=== PATIENT | male | born 1965 | race Caucasian/White ===

== ENCOUNTER 2018-12-11 08:50 | Outpatient (REF) | payer OTHER, SELFPAY ==
[2018-12-11 12:13] LABS: ALT 29 U/L (16-63); AST 14 U/L (15-37); Anion Gap 11.8 mmol/L (3-11); BUN 15 mg/dL (7-18); CO2 25.2 mmol/L (21.0-32.0); CREATININE 1.04 mg/dL (0.70-1.30); Calcium 8.7 mg/dL (8.5-10.1); Calculated LDL 112 mg/dL; Chloride 103 mmol/L (98-107); Cholesterol 178 mg/dL (50-200); Glucose 115 mg/dL (70-100); HDL Cholesterol 50 mg/dL (40-60); Potassium 4.3 mmol/L (3.5-5.1); Sodium 140 mmol/L (136-145); Triglyceride 83 mg/dL (30-150)
== END 2018-12-11 09:10 ==
LOC: NCHCN 08:50
PROVIDERS: PCP Nurse Practitioner Family; Visit Provider Nurse Practitioner Family
DX: Z00.00 Encounter for general adult medical examination without abnormal findings (principal); Z13.220 Encounter for screening for lipoid disorders; Z13.228 Encounter for screening for other metabolic disorders
CPT/HCPCS: 80048; 80061; 84450; 84460

== ENCOUNTER 2019-02-18 09:15 | Outpatient (CLI) | payer OTHER, SELFPAY ==
[2019-02-18 09:49] LABS: HCT 43.9 % (40.0-50.0); HGB 14.7 g/dL (13.5-17.5); Mean Corp. HGB Concentration 33.5 g/dL (32.0-36.0); Mean Corpuscular Hemoglobin 28.8 pg (27.0-33.0); Mean Corpuscular Volume 85.9 fL (80-95); Platelet Count 215 x1000/uL (130-400); RBC 5.11 m/cumm (4.50-6.00); RBC Distribution Width 13.7 % (11.8-14.1); White Blood Cell Count 5.56 k/cumm (4.4-10.8)
[2019-02-18 10:48] LABS: TSH 3.92 uIU/mL (0.36-3.74)
== END 2019-02-18 09:35 ==
PROVIDERS: PCP Nurse Practitioner Family; Visit Provider Nurse Practitioner
DX: R00.0 Tachycardia, unspecified (principal)
CPT/HCPCS: 36415; 85027; 84443

== ENCOUNTER 2019-04-19 07:36 | Day surgery (SDC) | payer OTHER, SELFPAY ==
[2019-04-19 07:53] VITALS: BP 121/80; PULSE 97; RESP 16; TEMP 36.4; O2SAT 97
[2019-04-19] MEDS: Lactated Ringers 1,000 ML 80 ML IV (08:11)
--- NOTE | 2019-04-19 08:34 | W.PM.HP.N ---
Date of service: 04/19/19 Time of Service: 08:35 Assessment and Plan Assessment and plan (1) Colon cancer screening: Status: Acute Assessment and plan: I advised colonoscopy. The procedure was described including the risks of perforation with need for surgery or bleeding. Patient agrees to proceed. History of Present Illness Narrative: 54 y/o male with history of GERD and diverticulitis (s/p sigmoidcolectomy 06/2007 secondary to perforated sigmoid diverticulosis) presents for colon screening. Last scope was a flexible sigmoidoscopy in 11/2007 via the stoma to cecum, prior to colostomy reversal 10/2007. He denies a family history of colon cancer. He denies any changes in bowel habits including bloody or black tarry stools, abdominal pain, diarrhea or constipation. He denies constitutional symptoms. Denies use of marijuana or any other recreational or illegal drugs. He denies chest pain, palpitations, dyspnea or dyspnea with exertion. He walks 2 miles/day. He denies prior history or family history of adverse reactions or complications with anesthesia. Review of Systems All systems reviewed & are unremarkable except as noted in HPI and below PFSH Medical History GERD (gastroesophageal reflux disease) (Chronic) Sleep apnea (Acute) Surgical History S/P laparoscopic-assisted sigmoidectomy (Acute) Social History Smoking/Tobacco Use Status: Former Tobacco Use Quit Date: 02/28/84 Alcohol Intake: current Alcohol Intake frequency: a few times a month Alcohol type: hard liquor Drug use: Never Substance use type: does not use Do you feel safe at home: Yes Do you feel safe in your relationship?: Yes Meds Home Medications and Allergies Home Medications Medication Instructions Recorded Confirmed Type esomeprazole magnesium 20 mg 20 mg PO DAILY 01/29/19 04/19/19 History capsule,delayed release bisacodyl 5 mg tablet,delayed 5 mg PO ONCE #4 tab 03/15/19 04/19/19 Rx release polyethylene glycol 3350 17 238 g PO ONCE #238 gm 03/15/19 04/19/19 Rx gram/dose oral powder Allergies Allergy/AdvReac Type Severity Reaction Status Date / Time No Known Allergies Allergy Verified 04/19/19 08:00 Exam Const General: healthy appearing and not in acute distress Nutritional Appearance: well nourished Orientation: oriented x3 HENMT Head: normal to inspection Eyes Sclera: sclerae normal Pupils: PERRL Neck Neck: no lymphadenopathy Chest Breast inspection: normal inspection of the axillae Resp Effort & Inspection: normal respiratory effort Auscultation: clear to auscultation bilaterally and no wheezes Cardio Rate: regular rate Rhythm: regular rhythm GI Inspection: non-distended Palpation: soft, no hepatosplenomegaly, no hernias and nontender Skin General skin exam: no rashes or lesions noted Neuro General: alert Cognition: normal cognition Extrem General: normal to inspection Psych Affect: normal affect Attitude: cooperative Results Last Vital Signs Temp 97.5 F L 04/19/19 07:53 Pulse 97 H 04/19/19 07:53 Resp 16 04/19/19 07:53 BP 121/80 04/19/19 07:53 Pulse Ox 97 04/19/19 07:53
--- NOTE | 2019-04-19 09:22 | W.PM.DSUDISC ---
Discharge Plan Disposition Patient Disposition: HOME Condition: Good Discharge Details Reason For Visit: Colonoscopy Attending Provider: Mariana Larsen Primary Care Provider: Gisele Dee Home Meds and New Rx's Prescriptions: Continued esomeprazole magnesium [Nexium] 20 mg capsule,delayed release(DR/EC) 20 mg PO DAILY RF: 0 Discontinued polyethylene glycol 3350 17 gram/dose powder 238 g PO ONCE Qty: 238 RF: 0 bisacodyl [Dulcolax (bisacodyl)] 5 mg tablet,delayed release (DR/EC) 5 mg PO ONCE Qty: 4 RF: 0 Discharge Instructions Additional Instructions: Findings: One small polyp was removed. My office will contact you with biopsy results. Diverticulosis was present. Follow up: If the biopsy results show an adenomatous polyp, you will need a colonoscopy in 5 years. Please call if you develop: fevers >101.5 Nausea or Vomiting Abdominal pain that is not transient DAY SURGERY UNIT POST COLONOSCOPY INSTRUCTIONS 1. Because there will be medication in your system for the next 24 hours, you may feel a little sleepy. Your coordination will be affected. Therefore: a. Do not drive or operate dangerous equipment for 24 hours. b. Do not drink alcohol beverages for 24 hours (not even beer). c. Plan to go home and rest for the day. 2. Generally there are no restrictions on your activity after a day or so has gone by, but you may feel a bit fatigued for a few days. 3 After you arrive home you may have a light meal and return to a normal diet as you can tolerate it without feeling sick to your stomach. 4. After surgery, you may feel pain or discomfort. This should be only transient, but if it persists please contact your doctor. 5. If there are any questions regarding the findings of your procedure, please feel free to contact your doctor. 6. If you are unable to contact your doctor with a problem, contact the hospital at [phone]. 7. Continue all your regular medications unless directed otherwise. I understand the above instructions and have no questions. Signature of Patient or Responsible Adult Escort Date/Time Name of Responsible Adult Escort Signature of Nurse Date/Time Activity:: Activity as Tolerated Diet:: As Tolerated Discharge Orders Discharge Orders: Discharge Order (Routine); Ordered 04/19/19 Ordered By: Mariana Larsen DS: Diagnosis Discharge Diagnosis (1) Diverticulosis: Status: Acute (2) Colon polyp: Status: Acute
--- NOTE | 2019-04-19 10:03 | BOWEL_PTH ---
PATIENT: Saúl Stokes LOC: [facility] U#:[id number] AGE/SX: 54/M ROOM: RE04/19/[address]: Mariana Larsen MD : 1965 BED: DIS: 04/19/2019 SPEC #: [id number] RECD: 04/19/19 12:58 STATUS: FABIAN REQ #: [id number] BING: 04/19/19 10:[address]: Mariana Larsen DEPT: Surgical Specimen RECD BY: Fernanda Umaña ENTERED: 04/19/19 12:58 SP TYPE: Bowel OTHR DR: Gisele Dee Tissues: 1 - BIOPSY BOWEL Procedures: GROSS AND MICRO LEVEL 4 Comments: [id number]
[2019-04-19 10:26] VITALS: PULSE 74; O2SAT 97
[2019-04-19 10:42] VITALS: BP 134/82; PULSE 76; RESP 16; TEMP 36; O2SAT 98
--- NOTE | 2019-04-19 11:38 | COLE_ITS ---
DATE OF PROCEDURE April 19, 2019 PREOPERATIVE DIAGNOSIS Screening. POSTOPERATIVE DIAGNOSES 1. Diverticulosis. 2. Descending colon polyp. PROCEDURE Colonoscopy with cold forceps polypectomy. SURGEON Mariana Larsen M.D. ANESTHESIA General. INDICATIONS This is a 54-year-old man, who presents for routine colon evaluation. His history is significant for a sigmoid resection with colostomy for perforated diverticulitis. Before reversal of his colostomy, isabelle villeda had a colonoscopy performed. This was done in 2007 or 2008. The patient has not had any symptoms si nce then. No family history of colon cancer. PROCEDURE He was placed in the left Haddad position. Propofol was titrated to sedation. Digital rectal examinatio n revealed no abnormalities. The scope was advanced to the cecum without difficulty. The ileocecal va lve and appendiceal orifice were clearly identified. The scope was slowly withdrawn with no abnormali ties seen within the ascending, transverse, or proximal descending colon. In the distal descending co bob, he was noted to have diverticular change. There was also a diminutive polyp that was removed wit h the cold forceps. There is a small possibility this represented an inverted diverticulum. No other abnormalities were seen throughout the sigmoid colon or rectum including on retroflexed view. He tole rated the procedure well and was stable to Recovery. If the polyp is adenomatous, he will need a colonoscopy again in 5 years.
== END 2019-04-19 11:25 | disposition home or self-care (01) ==
PROVIDERS: PCP Nurse Practitioner Family; Visit Provider Surgery
PROC: 0DJD8ZZ Inspection of Lower Intestinal Tract, Via Natural or Artificial Opening Endoscopic (ICD-10-PCS; CPT 45378; principal; 2019-04-19 09:00)
DX: Z12.11 Encounter for screening for malignant neoplasm of colon (principal); K57.30 Diverticulosis of large intestine without perforation or abscess without bleeding; K63.5 Polyp of colon; Z90.49 Acquired absence of other specified parts of digestive tract; K21.9 Gastro-esophageal reflux disease without esophagitis; G47.33 Obstructive sleep apnea (adult) (pediatric)
CPT/HCPCS: 45380; 88305; NC; J2001; J2250; J3010

== ENCOUNTER 2019-05-08 19:56 | Emergency (ER) | payer OTHER, SELFPAY ==
[2019-05-08 20:10] VITALS: BP 134/85; PULSE 106; RESP 14; O2SAT 97
--- NOTE | 2019-05-08 20:54 | ED.GENADUL_ITS ---
Discharge Plan Disposition Patient Disposition: HOME Condition: Stable Discharge Details Chief Complaint: AnimalBite Clinical Impression: Dog bite of left hand Primary Care Provider: Gisele Dee ED Provider: Yung Arambula Home Meds and New Rx's Prescriptions: New amoxicillin-pot clavulanate [Augmentin] 875-125 mg tablet 1 tab PO BID Qty: 14 RF: 0 Continued esomeprazole magnesium [Nexium] 20 mg capsule,delayed release(DR/EC) 20 mg PO DAILY RF: 0 Discharge Instructions Instructions: Animal Bite (ED) Additional Instructions: return in 7-10 days for wound evaluation and possible suture removal if you have spreading redness, severe pain or yellow/white discharge return to the emergency department for reevaluation Medical Decision Making 54 yo male comes in after his black lab accidentally bit him on the left hand. Denies falls or other injuries, states his last tetanus vaccine was in November and also that his dog is utd on all vaccines including rabies. HE has a 3cm deep v shaped laceration of the left ulnar mid hand. Full rom of the finger, no bony tenderness, normal sensation. Given depth of wound feel it requires loose sutures. Will irrigate and close and place on augmentin Differential Diagnosis Differential Diagnosis: laceration, dog bite HPI General Mode of arrival: ambulatory . Date/Time Provider Initiated Documentation: 05/08/19 20:44 . Limitations to Documentation: no limitations . Information obtained by: patient . History of Present Illness 54 year old M presents to the emergency department with the chief complaint of left hand bite wound, described as moderate, and it has been constant. No relieving factors improve symptom(s), No exacerbating factors reported . Patient did receive the following treatments prior to arrival, none Related Data Home Medications Medication Instructions Recorded Confirmed esomeprazole magnesium 20 mg 20 mg PO DAILY 01/29/19 05/08/19 capsule,delayed release amoxicillin-pot clavulanate 1 tab PO BID #14 tab 05/08/19 [Augmentin] Previous Rx's Medication Instructions Recorded amoxicillin-pot clavulanate 1 tab PO BID #14 tab 05/08/19 [Augmentin] Allergies Allergy/AdvReac Type Severity Reaction Status Date / Time No Known Allergies Allergy Verified 05/08/19 20:20 General Stated Complaint: AnimalBite MARY: 3 Review of Systems All systems reviewed & are unremarkable except as noted in HPI and below Constitutional Constitutional: Denies chills, Denies fever(s) and Denies weakness Cardiovascular Cardiovascular: Denies chest pain and Denies dyspnea Respiratory Respiratory: Denies cough and Denies dyspnea Gastrointestinal Gastrointestinal: Denies abdominal pain, Denies nausea and Denies vomiting Genitourinary Genitourinary: Denies dysuria Musculoskeletal Musculoskeletal: Denies joint swelling Integumentary/Breasts Skin/Breast: Denies rash Neurologic Neurologic: Denies weakness [facility] Social History Smoking/Tobacco Use Status: Former Tobacco Use Quit Date: 02/28/84 Alcohol Intake: current Alcohol Intake frequency: a few times a month Alcohol type: hard liquor Drug use: Never Substance use type: does not use Do you feel safe at home: Yes Do you feel safe in your relationship?: Yes Exam Const General: no acute distress Orientation: alert HENMT Head: normal to inspection Ears: external ears normal General nose exam: external nose normal Mouth: moist mucous membranes Eyes General: appearance normal, both eyes and all related structures Neck Neck: normal visual inspection Resp Effort & Inspection: normal respiratory effort and able to speak in complete sentences Cardio Rate: regular rate Skin General skin exam: no rashes or lesions noted Neuro General: alert and oriented x3 Extrem General: full ROM and normal capillary refill Psych Mental Status: mental status grossly normal Course Vital Signs Vital signs: Vital Signs Pulse 106 H 05/08/19 20:10 Respiratory Rate 14 05/08/19 20:10 Blood Pressure 134/85 05/08/19 20:10 Pulse Oximetry 97 05/08/19 20:10 Temperature Source Skin 05/08/19 20:10 Pulse 106 H 05/08/19 20:10 Respiratory Rate 14 05/08/19 20:10 Respiratory Effort 05/08/19 20:20 Blood Pressure 134/85 05/08/19 20:10 Blood Pressure Position Sitting 05/08/19 20:10 Pulse Oximetry 97 05/08/19 20:10 Oxygen Delivery Method Room Air 05/08/19 20:10 Oxygen Flow Rate 0 05/08/19 20:10 Pain Level 2 05/08/19 20:10 Procedures Laceration Laceration 1: Site: hand Side (If applicable): left Size (cm): 3 Description: stellate Depth: simple, single layer Local Anesthetic: Lidocaine 1% Amount of anesthesia used (mL): 6 Pre-repair: wound explored and irrigated extensively Skin layer closed with: vicryl Size (cm): 5-0 Number of sutures: 4 Technique: simple, interrupted
[2019-05-08 21:52] VITALS: BP 134/85; PULSE 106; RESP 14; TEMP 36.8; O2SAT 97
[2019-05-08] MEDS: Amoxicillin 875/Clav. 125 TAB PO (21:52)
--- NOTE | 2019-05-09 09:23 | NUR.NOTE ---
Nursing Note: Animal bite report form faxed by Jen Pierson this morning to [facility]. I spoke with Michelle Sosa, health officer for [facility] and she is aware of the report. Joselin Jain Fax [phone]
== END 2019-05-08 21:40 | disposition home or self-care (01) ==
PROVIDERS: Emergency Provider Emergency Medicine; PCP Nurse Practitioner Family
DX: S61.452A Open bite of left hand, initial encounter (principal); W54.0XXA Bitten by dog, initial encounter
CPT/HCPCS: 12002

== ENCOUNTER 2019-05-18 16:20 | Emergency (ER) | payer OTHER, SELFPAY ==
[2019-05-18 16:25] VITALS: BP 132/96; PULSE 92; RESP 16; TEMP 36.7; O2SAT 96
--- NOTE | 2019-05-18 16:38 | ED.GENADUL_ITS ---
Discharge Plan Disposition Patient Disposition: HOME Condition: Improving Discharge Details Chief Complaint: SutureRem Clinical Impression: Visit for suture removal Primary Care Provider: Gisele Dee ED Provider: Fan Moran Home Meds and New Rx's Prescriptions: Continued esomeprazole magnesium [Nexium] 20 mg capsule,delayed release(DR/EC) 20 mg PO DAILY RF: 0 No Action amoxicillin-pot clavulanate [Augmentin] 875-125 mg tablet 1 tab PO BID Qty: 14 RF: 0 Discharge Instructions Additional Instructions: Leave current dressing in place for approximately 2 to 3 days time. Then may perform daily soap and water gentle cleansing, pat dry, replace Band-Aid. Return for any other acute concern. Medical Decision Making 54-year-old male presents from home for evaluation of suture removal to left palm laceration. Does have an area of slight dehiscence with scab formation but otherwise wound is well-appearing and sutures were removed by staff. Instructed on home care. He stable for discharge home. HPI General Mode of arrival: ambulatory . Date/Time Provider Initiated Documentation: 05/18/19 16:38 . Limitations to Documentation: no limitations . Information obtained by: patient . History of Present Illness 54 year old M presents to the emergency department with the chief complaint of Suture removal left hand, and is localized to the left and upper extremity. No relieving factors improve symptom(s), No exacerbating factors reported . Patient notes no other symptoms.. Related Data Home Medications Medication Instructions Recorded Confirmed esomeprazole magnesium 20 mg 20 mg PO DAILY 01/29/19 05/18/19 capsule,delayed release amoxicillin-pot clavulanate 1 tab PO BID #14 tab 05/08/19 [Augmentin] Previous Rx's Medication Instructions Recorded amoxicillin-pot clavulanate 1 tab PO BID #14 tab 05/08/19 [Augmentin] Allergies Allergy/AdvReac Type Severity Reaction Status Date / Time No Known Allergies Allergy Verified 05/18/19 16:26 General Stated Complaint: SutureRem MARY: 5 Review of Systems Narrative: No other complaints [facility] Medical History GERD (gastroesophageal reflux disease) (Chronic) Sleep apnea (Acute) Social History Smoking/Tobacco Use Status: Former Tobacco Use Quit Date: 02/28/84 Alcohol Intake: current Alcohol Intake frequency: a few times a month Alcohol type: hard liquor Drug use: Never Substance use type: does not use Do you feel safe at home: Yes Do you feel safe in your relationship?: Yes Exam Narrative Exam Narrative: Left hand palmar surface with curvilinear healing laceration. Sutures removed by nursing staff. Exam is otherwise unremarkable. Course Vital Signs Vital signs: Vital Signs Temperature 36.7 C 05/18/19 16:25 Pulse 92 H 05/18/19 16:25 Respiratory Rate 16 05/18/19 16:25 Blood Pressure 132/96 H 05/18/19 16:25 Pulse Oximetry 96 05/18/19 16:25 Temperature 36.7 C 05/18/19 16:25 Temperature Source Temporal Artery Scan 05/18/19 16:25 Pulse 92 H 05/18/19 16:25 Respiratory Rate 16 05/18/19 16:25 Respiratory Effort Non-Labored 05/18/19 16:23 Blood Pressure 132/96 H 05/18/19 16:25 Blood Pressure Position Sitting 05/18/19 16:25 Pulse Oximetry 96 05/18/19 16:25 Oxygen Delivery Method Room Air 05/18/19 16:25 Oxygen Flow Rate 0 05/18/19 16:25 Pain Level 0 05/18/19 16:25
== END 2019-05-18 16:46 | disposition home or self-care (01) ==
PROVIDERS: Emergency Provider Emergency Medicine; PCP Nurse Practitioner Family
DX: S61.452D Open bite of left hand, subsequent encounter (principal); W54.0XXD Bitten by dog, subsequent encounter; Z48.02 Encounter for removal of sutures

== ENCOUNTER 2020-02-04 03:30 | Outpatient (CLI) | payer OTHER, SELFPAY ==
[2020-02-07 18:53] LABS: COVID-19 RT-PCR Result NEGATIVE (Negative)
== END 2020-02-04 03:50 ==
PROVIDERS: PCP Nurse Practitioner Family; Visit Provider Nurse Practitioner
DX: Z11.59 Encounter for screening for other viral diseases (principal); Z01.818 Encounter for other preprocedural examination
CPT/HCPCS: U0003

== ENCOUNTER 2020-03-16 02:09 | Outpatient (CLI) | payer OTHER, SELFPAY ==
[2020-03-17 12:40] LABS: COVID-19 RT-PCR UVMMC Result Negative (Negative)
== END 2020-03-16 02:29 ==
PROVIDERS: PCP Nurse Practitioner Family; Visit Provider Nurse Practitioner
DX: Z11.52 Encounter for screening for COVID-19 (principal); Z01.818 Encounter for other preprocedural examination
CPT/HCPCS: U0003

== ENCOUNTER 2020-03-27 07:03 | Emergency (ER) | payer OTHER, SELFPAY ==
[2020-03-27 07:08] VITALS: BP 156/94; PULSE 95; RESP 20; TEMP 36.2; O2SAT 98
--- NOTE | 2020-03-27 07:26 | ED.GENADUL_ITS ---
Discharge Plan Disposition Patient Disposition: HOME Condition: Good Discharge Details Clinical Impression: Knee pain Primary Care Provider: Gisele Dee ED Provider: Marco Antonio Smith [place] Meds and New Rx's Prescriptions: New naproxen 375 mg tablet 375 mg PO BID PRNQty: 20 RF: 0 Continued esomeprazole magnesium [Nexium] 20 mg capsule,delayed release(DR/EC) 20 mg PO DAILY RF: 0 acetaminophen 325 mg Tablet 975 mg PO PRN PRNRF: 0 Discharge Instructions Instructions: Knee Pain (ED) Additional Instructions: Pain may be related to cartilage problem despite lack of injury. Use naproxen and ice to see if this helps. Knee immobilzer for next week anyway. Follow up with PCP in one to two weeks if not getting better. May need referral to ortho. Return to ED if redness, swelling, fever. Referrals: Gisele Dee [Primary Care Provider] - Medical Decision Making No trauma or direct injury. Tender along the medial joint line suggesting meniscal problem. No pain with leg extended or lying down. Pain occurs with flexion especially with forced. I do not think x-rays are necessary at this point. We will start him on nonsteroidals and place in knee immobilizer. Follow-up with primary care in 1 to 2 weeks for recheck. May need referral to orthopedics if no improvement. Return to ED for fever, swelling, redness. HPI General Mode of arrival: ambulatory . Date/Time Provider Initiated Documentation: 03/27/20 07:18 . Limitations to Documentation: no limitations . Information obtained by: patient . HPI Narrative: Patient presenting with right medial knee pain since yesterday. Patient reports no injury. Just began having pain yesterday that is worse with flexion. Much worse if he is trying to get up out of a chair. Feels okay if it is felt straight. There is been no swelling or redness to the area. He has no fever. He otherwise feels well. He has not had problems with knee pain in the past. Tried heat and Tylenol. Is walking with a limp this morning because bending the knee causes significant pain. Related Data Home Medications Medication Instructions Recorded Confirmed esomeprazole magnesium 20 mg 20 mg PO DAILY 01/29/19 03/27/20 capsule,delayed release acetaminophen 975 mg PO PRN PRN 03/27/20 03/27/20 naproxen 375 mg PO BID PRN #20 tab 03/27/20 Previous Rx's Medication Instructions Recorded naproxen 375 mg PO BID PRN #20 tab 03/27/20 Allergies Allergy/AdvReac Type Severity Reaction Status Date / Time No Known Allergies Allergy Verified 05/18/19 16:26 General Stated Complaint: Orthopedic MARY: 4 Review of Systems Narrative: As documented in HPI otherwise negative as below. Const: no fever, chills Resp: no cough, SOB Neuro: no headache, numbness, focal weakness, confusion PFSH Medical History GERD (gastroesophageal reflux disease) Sleep apnea Surgical History S/P laparoscopic-assisted sigmoidectomy Social History Smoking/Tobacco Use Status: Former Tobacco Use Quit Date: 02/28/84 Smoking risk assessment performed?: Yes Alcohol Intake: current Alcohol Intake frequency: a few times a month Alcohol type: hard liquor Drug use: Never Substance use type: does not use Do you feel safe at home: Yes Do you feel safe in your relationship?: Yes Exam Narrative Exam Narrative: Const: WDWN male in NAD. HEENT: NC/AT. Normal facial exam. Eyes: Normal conjunctiva and sclera. Neck: Supple. Trachea midline. Lungs: Normal respiratory effort. Neuro: A+O x 3. Normal speech, mentation. Cranial nerves II - XII grossly intact. No gross motor or sensory deficit. Ext: Right knee with no effusion, warmth, erythema. Able to flex and extend but states with pain. No pain or laxity with ligamentous testing. Does have tenderness with palpation along the medial joint line. NVI distal. Skin: Warm and dry without erythema Course Vital Signs Vital signs: Vital Signs Temperature 97.2 F L 03/27/20 07:08 Pulse 95 H 03/27/20 07:08 Respiratory Rate 03/27/20 07:08 Blood Pressure 156/94 H 03/27/20 07:08 Pulse Oximetry 98 03/27/20 07:08 Temperature 97.2 F L 03/27/20 07:08 Temperature Source Skin 03/27/20 07:08 Pulse 95 H 03/27/20 07:08 Respiratory Rate 03/27/20 07:08 Respiratory Effort Non-Labored 03/27/20 07:11 Blood Pressure 156/94 H 03/27/20 07:08 Blood Pressure Position Sitting 03/27/20 07:08 Pulse Oximetry 98 03/27/20 07:08 Oxygen Delivery Method Room Air 03/27/20 07:08 Oxygen Flow Rate 0 03/27/20 07:08 Pain Level 9 03/27/20 07:08
[2020-03-27] MEDS: Naproxen 250 MG TAB PO (07:32)
== END 2020-03-27 07:40 | disposition home or self-care (01) ==
PROVIDERS: Emergency Provider Emergency Medicine; PCP Nurse Practitioner Family
DX: M25.561 Pain in right knee (principal)
CPT/HCPCS: 29505; 99283

== ENCOUNTER → 2021-06-18 00:38 | Outpatient (CLI) | payer OTHER, SELFPAY ==
--- NOTE | 2021-06-18 07:00 | DI.RAD_ITS ---
Exam(s) XR SHOULDER RT COMPLETE 2+V EXAM: XR SHOULDER RT COMPLETE 2+V CLINICAL HISTORY: persistent pain,impingement syndrome,m75.41. TECHNIQUE: 2D digital imaging was performed. Five views. COMPARISON: No exams were available for comparison FINDINGS: BONES: No acute fracture is present. No bony destructive lesion is seen. JOINTS: No dislocation present. Mild spurring at the AC joint. [id number] spurring at the mar gin of the glenoid. Subchondral cysts near the greater tuberosity. Humeral head is normally positio pal. SOFT TISSUE: Normal. IMPRESSION: Mild degenerative changes. DATA REPOSITORY: RADIATION DOSE DELIVERED:
== END ==
PROVIDERS: PCP Nurse Practitioner Family; Visit Provider Nurse Practitioner Family
DX: M75.41 Impingement syndrome of right shoulder (principal); M25.511 Pain in right shoulder; M19.011 Primary osteoarthritis, right shoulder
CPT/HCPCS: 73030

== ENCOUNTER → 2021-09-16 00:25 | Outpatient (CLI) | payer OTHER, SELFPAY ==
--- OUTSIDE RECORDS SUMMARY | 2021-09-16 00:28 | XMS_ITS | Clinical Summary ---
:1965 Author Organization [facility] [place] [address] Care Team Providers Name Role Phone Unknown Primary Care Provider Unavailable Allergies No known active allergies Medications No known medications Active Problems Problem Noted Date Eyelid laceration, left 12/12/2010 Sinus tachycardia 12/12/2010 Social History Tobacco Use Types Packs/Day Years Used Date Former Smoker Alcohol Use Standard Drinks/Week Comments Yes 0 (1 standard drink = 0.6 oz pure alcoho l) rare Alcohol Habits Answer Date Recorded How often do you have a drink containing alcohol? Not asked How many drinks containing alcohol do you have on a typical Not asked day when you are drinking? How often do you have six or more drinks on one occasion? No t asked Comment: rare 12/12/2010 Sex Assigned at Date Recorded Not on file Last Filed Vital Signs Vital Sign Reading Time Taken Comments Blood Pressure 135/70 12/12/2010 3:49 AM EDT Pulse 115 12/12/2010 3:49 AM EDT Temperature 36.8 ??C (98.2 ??F) 12/12/2010 3:57 AM EDT Respiratory Rate 20 12/12/2010 3:49 AM EDT Oxygen Saturation 98% 12/12/2010 2:04 AM EDT Inhaled Oxygen Concentration - - Weight 88.5 kg (195 lb) 12/12/2010 1:00 AM EDT Height 182.9 cm (6') 12/12/2010 1:00 AM EDT Body Mass Index 26.45 12/12/2010 1:00 AM EDT Plan of Treatment Health Maintenance Due Date Last Done Comments Covid-19 Vaccine (#1) 1971 HIV screen 1984 Hepatitis C Screening 1984 Lipid Screening 1984 Tdap adult 1985 Tetanus vaccine 1985 Colonoscopy 2011 Zoster vaccine (1 of 2) 2016 Advance Directive 2021 Influenza (Flu) vaccine (1 of 1 - Influenza standard 10/28/2021 series) Care Teams Sterile Preparation Technician Relationship Specialty Start Date End Date Unknown PCP - General 12/11/10 None
--- OUTSIDE RECORDS SUMMARY | 2021-09-16 00:28 | XMS_ITS | Encounter Summary ---
:1965 Author Organization [facility] Address [address] [place] [address] Care Team Providers Name Role Phone Unavailable Primary Care Provider Unavailable Encounter Details Date Type Department Care Team Description 11/15/2007 Before PRISM [facility] Drew Woods MD Converted Visit Family Medicine - [address] ([place]) [place], [place] 28 [facility] [id number] [place] [address] [phone] Social History Tobacco Use Types Packs/Day Years Used Date Never Assessed Sex Assigned at Date Recorded Not on file documented as of this encounter Plan of Treatment Not on filedocumented as of this encounter Procedures Procedure Name Priority Date/Time Associated Diagnosis Comme nts SURGICAL PATHOLOGY Routine 11/15/2007 0:00 EDT Re sults for this procedure are i n the results section. documented in this encounter Results SURGICAL PATHOLOGY (11/15/2007 0:00 EDT) Pathology Report: SURGICAL PATHOLOGY REPORT ? [facility] Reports generated via electr [employer] interface contain original data; ? LAB however they are lacking the format of the original report. ? Caution should be taken when reading/interpreting unformatted reports. ? Name: ? RUI, SAÚL C ? Accession #: ? [id number] ? : ? 1965 (Age: 42) ??M ? Collec t Date: ? 11/15/2007 ? Location: ? [facility] ? R eceive Date: ? 11/15/2007 ? Provider: DREW WALKO MD ? Copy to: TABATHA Redding D ? Final Pathologic Diagnosis: ? A. ?Colon, sigm oid, segmental resection: ? 1. ?No specific pathologic features. ? 2. ? Surgical margins vi able. ? B. ?Appendix, a ppendectomy: ? 1. ?? No specific pat hologic features. ? Document reviewed and electr onically signed by: ? Nick Moore MD ? Report ??Date: 11/20/2007 15 :02 ? By the signature above, the attending physician certifies that he/she has ? personally conducted a gross and/or microscopic examination of the described ? specimens and rendered or co nfirmed the above diagnosis. ? Specimen(s) Received: ? A. ?Residual si gmoid colon (#1) ? B. ? Appendix (#2) ? Clinical History: ? S/P Alvino's proced ure for ruptured diverticulum 07/18/; reversal ? Alvino's colostomy 11/14/ ? Gross Description: ? Received in formalin labelled Rui and 1 ??residual sigmoid colon is a ?? 4.5 cm in length by 2.5 cm i n diameter portion of colon received closed which ?? has an ellipse of white skin at the distal end which is surrounding the distal ?? bowel with the white skin el lipse measuring 4.5 cm from tip to tip and the ? central portion of the ellip se surrounding the bowel ranging from 0.1 to 0.3 cm in width. ??There is also a separately received short piece of bowel which ? measures 1.2 cm in length by 1.5 cm in diameter, which has numerous magalie and blue sutures at one end whil e the opposite end is opened. ??The mucosa of the ? longest segment of bowel is light white, velvety, and folded, and is dusky, ? white-brown at its distal end surrounded by the skin ellipse. ??The long segment of bowel has a wall thickness o f 0.7 cm in average and has white-brown to focally ? yellow fibrofatty tissue on its external surface. ??The separately received short piece of bowel has light white , velvety, folded mucosa with a wall thickness of ?? 0.6 cm. ??Sections reveal nu merous magalie within this short piece of bowel. ? Manager Payment sections of t he specimen are submitted as follows: ? BLOCK ALLEN ? A1 ?Proximal lara rgical margin of longest segment, reverse en face ? A2, A3 ?Two sec tions from distal end of longest segment of bowel ? A4 ?Central sec tion from longest segment of bowel ? A5 ?Mucosa and muscularis from short segment of bowel ? Received in formalin yonny d Rui and 2 ??appendix is a 5.5 cm in length by ?? 0.5 cm in average diameter v ermiform appendix which has a moderate amount of ? attached mesoappendix (the p roximal appendiceal margin is black inked). ??The ? sections reveal a distal ashlee endiceal lumen is obliterated, and the remaining ? appendiceal lumen measures 0 .1 cm in diameter with no fecaliths. ??The ? appendiceal wall is light ta n-white with focal subserosa hemorrhage towards the proximal one-third of the ap pendix. ??The appendiceal wall measures 0.2 cm in ? average thickness. ??The ser amberly is smooth and light white-white. ??One-half of the ?? longitudinally bisected dist al tip of the appendix as well as senior customer service representative ? cross sections from the dist al, middle, and proximal appendix are submitted as ?? (B). ??(Judit Apple/jennifer ? End of Report ? Specimen Performing Organization Address City/State/ZIP Code Phon e Number [facility] [address] [place] [address] SERVICES [facility] [address] [place] [address] documented in this encounter Visit Diagnoses Not on filedocumented in this encounter
--- OUTSIDE RECORDS SUMMARY | 2021-09-16 00:28 | XMS_ITS | Encounter Summary ---
:1965 Author Organization [facility] Address [address] [place] [address] Care Team Providers Name Role Phone Unavailable Primary Care Provider Unavailable Encounter Details Date Type Department Care Team Description 11/07/2007 Before PRISM [facility] Drew Woods MD Converted Visit Family Medicine - [address] ([place]) [place], [place] 28 [facility] [id number] [place] [address] [phone] Social History Tobacco Use Types Packs/Day Years Used Date Never Assessed Sex Assigned at Date Recorded Not on file documented as of this encounter Plan of Treatment Not on filedocumented as of this encounter Procedures Procedure Name Priority Date/Time Associated Diagnosis Comme nts SURGICAL PATHOLOGY Routine 11/07/2007 0:00 EDT Re sults for this procedure are i n the results section. documented in this encounter Results SURGICAL PATHOLOGY (11/07/2007 0:00 EDT) Pathology Report: SURGICAL PATHOLOGY REPORT ? [facility] Reports generated via electr [employer] interface contain original data; ? LAB however they are lacking the format of the original report. ? Caution should be taken when reading/interpreting unformatted reports. ? Name: ? RUI, SAÚL C ? Accession #: ? [id number] ? : ? 1965 (Age: 42) ??M ? Collec t Date: ? 11/07/2007 ? Location: ? [facility] ? R eceive Date: ? 11/08/2007 ? Provider: DREW WALKO MD ? Copy to: TABATHA Redding D ? Final Pathologic Diagnosis: ? A. ?Colon, rect osigmoid, polyp, biopsies: ? 1. ?Prominent l ymphoid aggregates. ? 2. ? Patchy acute crypti tis and surface colitis. ??See comment. ? B. ?Rectum, bio psies: ? 1. ?Patchy acut e cryptitis and rare crypt abscesses. ? 2. ? Lymphoid aggregates . ? Comment: ? The features are non- specific and certainly could be related to the ? diverticular disease present but may also represent a self limited colitis. ??In the rectosigmoid, the acute surface inflammation is overlying a prominent ? lymphoid aggregate and almos t forms an aphthous lesion. ??No mucosal ulceration ?? is identified. ??Both biopsi es demonstrate scattered cryptitis and there is one ?? crypt abscess in the rectal biopsy (B). ??Glandular architectural abnormalities ?? are minimal and within the s pectrum of expectation for the rectum and ? rectosigmoid. ??This case salazar s been reviewed at the intradepartmental consultation conference. ??(Dr. Caraballo)/juni jn ? Document reviewed and electr onically signed by: ? Eric Caraballo MD ? Report ??Date: 11/09/2007 18 :18 ? By the signature above, the attending physician certifies that he/she has ? personally conducted a gross and/or microscopic examination of the described ? specimens and rendered or co nfirmed the above diagnosis. ? Specimen(s) Received: ? A. ?Rectosigmoi d polyp (#1) ? B. ? Bx rectum (#2) ? Clinical History: ? S/P Catalan's resecti on for perforated diverticulitis; ? disease colitis ?? related polyps ? Gross Description: ? Received in [facility]' s fixative labelled Rui and rectosigmoid polyp. ?? The specimen consists of thr ee pink-white, irregular soft tissues ranging from 0.1 x 0.1 x 0.1 cm to 0.3 x 0.2 x 0.1 cm. ??Submitted in toto as (A). ? Received in [facility]'s fixat chetan labelled Rui and rectal biopsy. ??The ? specimen consists of three p ink-white, irregular soft tissues, each 0.2 x 0.2 x ?? 0.2 cm, submitted in toto as (B). ??(Reji Gilbert)/kmm ? End of Report ? Specimen Performing Organization Address City/State/ZIP Code Phon e Number [facility] [address] [place] [address] SERVICES [facility] [address] [place] [address] documented in this encounter Visit Diagnoses Not on filedocumented in this encounter
--- OUTSIDE RECORDS SUMMARY | 2021-09-16 00:28 | XMS_ITS | Encounter Summary ---
:1965 Author Organization [facility] Address [address] [place] [address] Care Team Providers Name Role Phone Gisele Dee KUSUM Primary Care Provider Encounter Details Date Type Department Care Team Description 04/19/2019 Lab Requisition [facility] Mariana Larsen ter for screening for malignant neoplasm of colon; Pathology & MD Claire Diverticulosis of intestine, part unspec ified, without perforation or abscess without bleeding; Laboratory Medicine [address] [place], [place] [address] [facility] [address] [place], [place] [phone] (Work) [phone] Social History Tobacco Use Types Packs/Day Years Used Date Never Assessed Sex Assigned at Date Recorded Not on file documented as of this encounter Plan of Treatment Not on filedocumented as of this encounter Procedures Procedure Name Priority Date/Time Associated Diagnosis Comme nts SURGICAL PATHOLOGY Today 04/19/2019 10:03 Encounter for Resu lts for this EST screening for procedure are in malignant neoplasm the resul ts of colon section. Diverticulosis of intestine, part unspecified, without perforation or abscess without bleeding Polyp of colon documented in this encounter Results SURGICAL PATHOLOGY (04/19/2019 10:03 EST) Final Diagnosis A. COLON, DESCENDING, POLYP, BIOPSY: [facility] Electronically - Consistent with hyperplastic polyp. YENI TER signed by Lidia Smalls, - Deeper sections x3 examined. LABORATORY Erasmo Deng MD on SERVICES 04/22/2019 at 13 30 Clinical History Colon cancer screening. Hist ory of diverticulitis +perforated diverticulosis [facility] SERVICES Attestation By the signature [facility] below, the attending CENTER signed by Lidia Smalls, physician certifies LABORATORY Erasmo Deng MD on that they have 1) SERVICES 04/22/2019 at 1330 personally conducted a gross and/or microscopic examination of the described specimen(s), and/or personally interpreted the results of laboratory testing of the described specimen(s), and 2) personally rendered or confirmed the above diagnosis. Gross Description A. Received in formalin labe lled with proper patient identification (initials R, B) and descending colon polyp is a white irregular tissue, 0.2 x 0.2 x 0.1 cm. Entirely submitted in A1. [facility] Krystle Patiño 04/19/2019 16:27 LABORATORY SERVICES Scanned Images [facility] Specimen Tissue - Descending colon structure (bod y structure) Performing Organization Address City/State/ZIP Code Phon e Number [facility] [address] [place] [address] SERVICES documented in this encounter Visit Diagnoses Diagnosis Encounter for screening for malignant ne oplasm of colon Special screening for malignant neoplasm s, colon Diverticulosis of intestine, part unspec ified, without perforation or abscess without bleeding Polyp of colon Benign neoplasm of colon documented in this encounter Care Teams Group Underwriter Relationship Specialty Start Date End Date Gisele Dee FNP PCP - General 04/19/19 [address] [place] [address] documented as of this encounter
--- OUTSIDE RECORDS SUMMARY | 2021-09-16 00:28 | XMS_ITS | Encounter Summary ---
:1965 Author Organization [facility] Address [address] [place] [address] Care Team Providers Name Role Phone Gisele Dee HOTEL RECREATIONAL FACILITIES MANAGER Primary Care Provider Encounter Details Date Type Department Care Team Description 03/16/2020 Lab Requisition [facility] Outr Resulting Lab, Pathology & Laboratory Provider [facility] [address] [place] [id number] Social History Tobacco Use Types Packs/Day Years Used Date Never Assessed Sex Assigned at Date Recorded Not on file documented as of this encounter Plan of Treatment Not on filedocumented as of this encounter Procedures Procedure Name Priority Date/Time Associated Diagnosis Comme nts COVID-19 TEST [facility] Today 03/16/2020 10:55 LAB PCR EST COVID-19 TESTING Routine 03/16/2020 10:55 Results for this EST procedure are i n the results section. documented in this encounter Results COVID-19 TEST [facility] LAB PCR (03/16/2020 10:55 EST) Specimen Swab - Entire nasopharynx (body structur e) Performing Organization Address City/State/ZIP Code Phon e Number [facility] [address] [place] [address] SERVICES COVID-19 TESTING (03/16/2020 10:55 EST) COVID-19 rt-PCR Negative Negative [facility] Result Comment: CENTER LABORATORY This test has not been FDA c leared or approved. This test has been authorized by FDA under an EUA for use by authorized laboratories. This test has been authorized only for detection of nucleic acid fro SERVICES m 2018-, not for any oth er viruses or pathogens. This test is only authorized for the duration of the declaration that circumstances exist justifying the authorization of emergency use of in vitro d iagnostic tests for detectio n and/or diagnosis of 2019-nCoV under section 564(b)(1) of Act, 21 U.S.C ?? 360bbb-3(b) (1), unless the authorization is terminated or revoked sooner. Negative results do not prec lude 2019-nCoV infection and should not be used as the sole basis for treatment or other patient management decisions. Negative results must be combined with clinical observa tions, patient history, and epidemiological informatio n. Testing was performed using the tanvir SARS-CoV-2 assay ([employer] on the Tanvir 6800 System Performing Lab Tanvir [address] [facility] Lab [facility] SERVICES Specimen Swab Performing Organization Address City/State/ZIP Code Phon e Number [facility] [address] [place] [address] SERVICES documented in this encounter Visit Diagnoses Not on filedocumented in this encounter Care Teams Commercial Assistant Relationship Specialty Start Date End Date Gisele Dee FNP PCP - General 04/19/19 [address] [place] [address] documented as of this encounter
--- OUTSIDE RECORDS SUMMARY | 2021-09-16 00:28 | XMS_ITS | Encounter Summary ---
:1965 Author Organization [facility] Address [address] [place] [address] Care Team Providers Name Role Phone Unavailable Primary Care Provider Unavailable Encounter Details Date Type Department Care Team Description 07/19/2007 Results Only [facility] Drew Johnston MD conversion [address] [place] [id number] [place] [id number] [phone] Social History Tobacco Use Types Packs/Day Years Used Date Never Assessed Sex Assigned at Date Recorded Not on file documented as of this encounter Plan of Treatment Not on filedocumented as of this encounter Procedures Procedure Name Priority Date/Time Associated Diagnosis Comme nts SURGICAL PATHOLOGY Routine 07/19/2007 0:00 EDT Re sults for this procedure are i n the results section. documented in this encounter Results SURGICAL PATHOLOGY (07/19/2007 0:00 EDT) Pathology Report: SURGICAL PATHOLOGY REPORT [facility] Reports generated via electronic interface contain kevin ginal data; LAB however they are lacking the format of the original re port. Caution should be taken when reading/interpreting unfo rmatted reports. Name: ? SAÚL FABIAN ? Accession #: ? [id number] ? : ? 1965 (Age: 42) ??M ? Collect Date: ? 07/19/2007 ? Location: ? [facility] ? Receive Date: ? 008 ? Provider: DREW VALADEZ MD Copy to: TABATHA WALKER MD ? Final Pathologic Diagnosis: ? Colon, sigmoid, segmental resection: 1. ?Acute diver ticulitis with peridiverticular abscess and perforation. See comment. 2. ? Acute fibrinous serositis. 3. ? Margins negative for inflammation and are via ble. Comment: ? Seed Corn Production Manager sectio ns of this case were reviewed at the intradepartmental consultation conference. ??(Irma Alfaro)/[facility] Document reviewed and electronically signed by: [facility] Report ??Date: 07/25/2007 15:18 By the signature above, the attending physician certif ies that he/she has personally conducted a gross and/or microscopic examin ation of the described specimens and rendered or confirmed the above diagnosi s. Specimen(s) Received: ? Portion perforated sigmoid colon, portion sigmo id colon Clinical History: ? Diverticular perforation, sigmoid colon Gross Description: ? Received in formalin labelled Kike and sigmoid colon ??perforated portion are two segments of large bowel which are received par tially opened with two stapled ends and which measu re 6.5 and 5.0 cm in length and average 2.5 ??3.5 cm in diameter. ??The serosa is white-pink and smooth; however, the attached mesentery has focal hemorrhage and fibrinous exudate. ??In the mesentery of the smaller segment, there is a 3.0 x 2. 0 x 0.5 cm area of hemorrhage and fibrinous exudate which is slightly puckered. ??The mucosa of the smaller segment is white-pink and folded and reveals a single prominent diverticulum wit h surrounding exudate, which appears to perforate t hrough the wall and overlies the area of mesenteric puckering described above. ??The muscular wall measure s up to 0.4 cm in thickness. ??The larger segment of bowel has a white-pin k, folded mucosa with multiple diverticula. ?? The re is no abscess formation or perforation associated with any of these diverticula. ??The muscular wall elena sures up to 0.5 cm in thickness. ??Seed Corn Production Manager sections are submitted as follows: BLOCK ALLEN A1 ?Distal margins, smaller segment , en face adjacent to magalie A2, A3 ?Perforating diverticulum A4 ?Uninvolved bowel, smaller segment A5 ?Distal margins, larger segment, en fa ce adjacent to stapled A6, A7 ?Diverticula, larger segment A8 ?Uninvolved colon, larger segment (Dr. Becerra)/mpl End of Report Specimen Performing Organization Address City/State/ZIP Code Phon e Number [facility] [address] [place] [address] SERVICES [facility] [address] [place] [address] documented in this encounter Visit Diagnoses Not on filedocumented in this encounter
--- OUTSIDE RECORDS SUMMARY | 2021-09-16 00:28 | XMS_ITS | Encounter Summary ---
:1965 Author Organization [facility] Address [address] [place] [address] Care Team Providers Name Role Phone Gisele Dee MANAGER SUPPORT SERVICES Primary Care Provider Encounter Details Date Type Department Care Team Description 02/04/2020 Lab Requisition [facility] Outr Resulting Lab, Pathology & Laboratory Provider [facility] [address] [place] [address] Social History Tobacco Use Types Packs/Day Years Used Date Never Assessed Sex Assigned at Date Recorded Not on file documented as of this encounter Plan of Treatment Not on filedocumented as of this encounter Procedures Procedure Name Priority Date/Time Associated Comments Diagnosis DO NOT ORDER Today 02/04/2020 11:08 Results for this STANDALONE - BROAD EST procedure are in COVID TEST the results section. COVID-19 TESTING Routine 02/04/2020 11:08 Results for this EST procedure are i n the results section. documented in this encounter Results DO NOT ORDER STANDALONE - BROAD COVID TEST (02/04/2020 11:08 EST) COVID-19 rt-PCR NEGATIVE Negative [facility] Result Comment: LABORATORY 2019-novel Coronavirus (2019 -nCoV) not detected by the qRT-PCR assay. Consider testing for other respiratory viruses or re-collecting for 2019-nCoV testing. Note: Optimum timing for peak viral levels du ring infections caused by 20 -nCoV have not been determined. Collection of multiple specimens from the same patient may be necessary to detect the virus. Limitations Positive results are indicat chetan of active infection with SARS-CoV-2 but do not rule out bacterial infection or co-infection with other viruses. The agent detected may not be the definite cause of diseas e. In addition, detection of viral RNA may not indicate the presence of infectious virus or that SARS-CoV-2 is the causative agent for clinical symptoms. Negative results do not prec lude SARS-CoV-2 infection and should not be used as the sole basis for patient management decisions. Negative results must be combined with clinical observations, patient his tory, and epidemiological in formation. False negative results may also occur if amplification inhibitors are present in the specimen or if inadequate numbers of organisms are present in the specimen. Op timum specimen types and nigel ing for peak viral levels during infections caused by SARS-CoV-2 have not been fully determined. Collection of multiple specimens (types and time points) from the same patient may be necessary to detect the virus. The test was validated for u se with upper respiratory specimens obtained via nasopharyngeal or oropharyngeal swabs in VTM, UTM, M4, M5, M6, saline, and MTM media. The performance of this test has not be en established for other spe cimens. Specimens collected using other FDA recommended Specimen Collection Materials listed in the FDA COVID-19 [employer] communication (May 23, 2019) are pr ocessed with the caveat that they were not all validated for use with this test and the result must be interpreted in this context. Furthermore, a false negative results may occur if a specimen is improperly collected, transported or handled. If the virus mutates in the RT-PCR target region, SARS-CoV-2 may not be detected or may be detected less predictably. Inhibitors or other types of interference may produce a false negative result. An interference study evaluating the effect of common cold medications was not performed. This test is not FDA-cleared but its performance characteristics were established by our CLIA-certified, CAP-accredited, high complexity laboratory in accordance with CLIA regulations, [employer] an [employer] (CAP) guidel rafat (May 16, 2019), and FDA guidance (Apr 27, 2019). This test is only for use un an the Food and Drug Administration's Emergency Use Authorization. Specimen Swab - Entire nasopharynx (body structur e) Performing Organization Address City/State/ZIP Code Phon e Number [facility] [place] [place] COVID-19 TESTING (02/04/2020 11:08 EST) Pathologist [facility] COVID-19 rt-PCR NEGATIVE Negative [facility] Result Comment: LABORATORY 2019-novel Coronavirus (2019 -nCoV) not detected by the qRT-PCR assay. Consider testing for other respiratory viruses or re-collecting for 2019-nCoV testing. Note: Optimum timing for peak viral levels du ring infections caused by 20 -nCoV have not been determined. Collection of multiple specimens from the same patient may be necessary to detect the virus. Limitations Positive results are indicat chetan of active infection with SARS-CoV-2 but do not rule out bacterial infection or co-infection with other viruses. The agent detected may not be the definite cause of diseas e. In addition, detection of viral RNA may not indicate the presence of infectious virus or that SARS-CoV-2 is the causative agent for clinical symptoms. Negative results do not prec lude SARS-CoV-2 infection and should not be used as the sole basis for patient management decisions. Negative results must be combined with clinical observations, patient his tory, and epidemiological in formation. False negative results may also occur if amplification inhibitors are present in the specimen or if inadequate numbers of organisms are present in the specimen. Op timum specimen types and nigel ing for peak viral levels during infections caused by SARS-CoV-2 have not been fully determined. Collection of multiple specimens (types and time points) from the same patient may be necessary to detect the virus. The test was validated for u with upper respiratory specimens obtained via nasopharyngeal or oropharyngeal swabs in VTM, UTM, M4, M5, M6, saline, and MTM media. The performance of this test has not be en established for other spe cimens. Specimens collected using other FDA recommended Specimen Collection Materials listed in the FDA COVID-19 [employer] communication (May 23, 2019) are pr ocessed with the caveat that they were not all validated for use with this test and the result must be interpreted in this context. Furthermore, a false negative results may occur if a specimen is improperly collected, transported or handled. If the virus mutates in the RT-PCR target region, SARS-CoV-2 may not be detected or may be detected less predictably. Inhibitors or other types of interference may produce a false negative result. An interference study evaluating the effect of common cold medications was not performed. This test is not FDA-cleared but its performance characteristics were established by our CLIA-certified, CAP-accredited, high complexity laboratory in accordance with CLIA regulations, [employer] [facility] an Pathologists (CAP) guidel rafat (May 16, 2019), and FDA guidance (Apr 27, 2019). This test is only for use un an the Food and Drug Administration's Emergency Use Authorization. Performing Lab [facility] LABORATORY SERVICES Specimen Swab Performing Organization Address City/State/ZIP Code Phon e Number [facility] [address] [place] [address] SERVICES [facility] [place], [place] documented in this encounter Visit Diagnoses Not on filedocumented in this encounter Care Teams Motor Checker Relationship Specialty Start Date End Date Gisele Dee FNP PCP - General 04/19/19 [address] [place] [address] documented as of this encounter
--- OUTSIDE RECORDS SUMMARY | 2021-09-16 00:28 | XMS_ITS | Encounter Summary ---
:1965 [place] [address] Care Team Providers Name Role Phone Unknown Primary Care Provider Unavailable Reason for Visit Reason Comments Facial Laceration Encounter Details Date Type Department Care Team Description 12/12/2010 Emergency Emergency Department Juan Carlos Canada MD Eyelid laceration, left; [facility] Sinus t achycardia; [facility] DR Olson specified open wound of ocular adn exa; [facility] EMERGENCY MED ICINE Other specified [place] [address] [place] [address] [phone] Social History Tobacco Use Types Packs/Day Years [...] on file documented as of this encounter Last Filed Vital Signs Vital Sign Reading [...] Mass Index 26.45 12/12/2010 1:00 AM EDT documented in this encounter Discharge Instructions Discharge InstructionsTip Echols MD - 12/12/2010 4:40 AM EDT You should follow up with your primary care doctor early next week to have your fast heart rate (tachycardia) evaluated. You should have your blood levels checked to look for anemia. You should have your thyroid levels checked You should return if you develop chest pain or pressure, trouble breathing, lightheadedness/dizziness. AttachmentsThe following attachments cannot be sent through Care Everywhere. CUTS: AFTER YOUR VISIT (BENGALI)CARDIAC ARRHYTHMIA: AFTER YOUR VISIT (BENGALI) documented in this encounter ED Notes Juan Carlos Canada MD - 12/12/2010 4:10 AM EDT Images from the original note were not included. Chief Complaint Patient presents with ??? Facial Laceration HPI Comments: Mr Stokes is a 45 year old man with minimal PMH who presents as a transfer from [facility] for plastic surgery eval for a L eyelid lac. He was incidentally found to have a regular tachycardia to 120s which was sustained during his course in the ED. EKG was obtained and showed sinus tachycardia with incomplete RBBB. He does not feel his heart racing or palpitations. He otherwise has no complaints.He denies any chest pain, shortness of breath, N/V. The history is provided by the patient. No Known Allergies Review of Systems Constitutional: Negative for fever and chills. HENT: Negative for congestion and rhinorrhea. Eyes: Negative for visual disturbance. Respiratory: Negative for cough, chest tightness and shortness of breath. Cardiovascular: Negative for chest pain, palpitations and leg swelling. Gastrointestinal: Negative for nausea, vomiting, abdominal pain, diarrhea, blood in stool and anal bleeding. Genitourinary: Negative for frequency and hematuria. Musculoskeletal: Negative for gait problem. Skin: Positive for wound. Neurological: Negative for light-headedness and numbness. Psychiatric/Behavioral: The patient is not nervous/anxious. Physical Exam Constitutional: He is oriented to person, place, and time. He appears well- developed and well-nourished. No distress. Eyes: EOM are normal. Pupils are equal, round, and reactive to light. Cardiovascular: Intact distal pulses. Tachycardic to 110s. Regular. No murmur or rub. Pulmonary/Chest: No respiratory distress. Minimal rhonchi in R base. Otherwise clear to auscultation. Abdominal: Soft. Bowel sounds are normal. He exhibits no distension. No tenderness. He has no guarding. Musculoskeletal: He exhibits no edema and no tenderness. Neurological: He is alert and oriented to person, place, and time. Skin: No rash noted. He is not diaphoretic. No erythema. No pallor. Psychiatric: His behavior is normal. Thought content normal. Procedures MDM EKG: Sinus tachycardia to 125bpm with incomplete RBBB. ED Course: The patient had incidentally detected sinus tachycardia which was asymptomatic. Underlying etiology is unclear but ddx includes anemia, dehydration, hyperthyroid, anxiety, pain, PE, ACS, caffeine intake. No symptoms of SOB or chest pain/pressure and no ischemic changes on EKG thus unlikely PE, ACS. PTdoes not clinically appear anemic nor dehydrated. Pt denies pain or anxiety. Possible caffeine intake as pt and stopped at truck stop for coffee and donuts prior to coming to [facility] this evening, though unlikely to cause prolonged tachycardia. We offered the patient lab eval with CBC, CHEM7, TSH and administration of IVF, however pt declined and preferred to return home and to follow up with PCP early next week. He will call on Monday to set up appt with PCP for further eval. He was given instructions to return for CP, SOB, lightheadedness, dizziness. He was given wound care instructions by plastic surgery for the eyelid lac. Tip Echols MD Resident 12/12/10 0440 ED ATTENDING ADDENDUM: The patient was seen in conjunction with Dr. Echols, the resident physician. I have independently performed the duarte portions of the history and physical exam. I have reviewed all diagnostic studies personally including labs, imaging studies and EKG's. I have discussed the details of the case with the resident and agree with the assessment and plan as described in the resident note above unless noted otherwise below. Juan Carlos Canada MD 12/12/10 0701 Santos Lee MD - 12/12/2010 3:40 AM EDT Plastic surgery consult note Chief Complaint Patient presents with ??? Facial Laceration HPI 45 yo male who ran into a metal bar and lacerated his L eye upper lid. Seen in [facility] and transferred to our ED where he was evaluated by our ER doctors and we were called to repair his eyelid laceration. His L eye vision was reportedly initially blurry but significantly improved on his way to our ER. He does not wear contacts or glasses. He is otherwise healthy with GERD being th only pertinent PMH. He had a large intestinal perforation approx 2 years ago that was repaired but had surgery to his face. He does not smoke, occasionally has alcohol and works as a car mechanic. He lives at home with his . Allergies no known allergies Review of Systems No fevers, chills, nausea, vomiting, chest pain, sob, problems with balance, problems with stool or urine, weakness, numbness, problems with appetite Physical Exam NAD Tachy, RR CTAB L eyebrow abrasion L eye: grossely can count fingers, intact EOM, no diploplia. 3 cm through and through laceration involving the eyelid hairline and tarsus Procedures Optic anesthesia drops used Area cleaned and washed 1cc local 1% lidocaine used 6-0 chromic gut interrupted sutureto approximate eyelid tarsal plate followed by interrupted suturesapproximating orbicularis and skin superficially Pt tolerated procedure well MDM AP: 45 yo male with L upper eyelid injury sp repair in the ER. -sutures are absorbable and will dissolve Eyepatch to be worn for 5 days May wet left eye in 48 hours Pt told not to rub L eye given fine suture repair that may break open Followup with plastic surgery as needed Santos Lee MD Resident 12/12/10 0350 documented in this encounter Miscellaneous Notes Miscellaneous - Provider, Scanning - 12/12/2010 6:09 AM EDT ED Triage - Xi Agustin RN - 12/12/2010 12:58 AM EDT Patient states ran into metal bar on the back of a wrecker around 1999. Laceration to left eye lid and laceration to left eyebrow. Eye is red and left eye lid is swollen. documented in this encounter Plan of Treatment Not on filedocumented as of this encounter Procedures Procedure Name Priority Date/Time Associated Diagnosis Comme nts EKG 12-LEAD STAT 12/12/2010 2:57 AM Results f or this EDT procedure are i n the results section . documented in this encounter Results EKG 12 Lead (12/12/2010 2:57 AM EDT) Component Value Ref Range Test Analysis Performed Pathologis t Method Time At Signature Ventricular rate 125 BPM MUSE SYSTEM Atrial Rate 125 BPM MUSE SYSTEM P-R Interval 160 ms MUSE SYSTEM QRS Duration 106 ms MUSE SYSTEM Q-T Interval 342 ms MUSE SYSTEM QTC Calculated 493 ms MUSE SYSTEM (Bezet) Calculated P [place] 52 degrees MUSE SYSTEM Calculated R [place] 63 degrees MUSE SYSTEM Calculated T [place] 23 degrees MUSE SYSTEM INTERPRETATION Sinus tachycardia MUSE SY STEM Incomplete right bundle branch block T wave abnormality, consider inferior ischemia Abnormal ECG No previous ECGs available Confirmed by MD Robert, Salty Miner ([id number]) on 12/12/2010 4:57: 20 PM Specimen Anatomical Collection Method Collection Time Receive d Time (Source) Location / / Volume Laterality 12/12/2010 2:57 AM 1 4:57 EDT PM EDT Eben Tinoco MD ECG ORDERABLES Performing Organization Address City/State/ZIP Code Phon e Number MUSE SYSTEM documented in this encounter Visit Diagnoses Diagnosis Eyelid laceration, left Other specified open wound of ocular adn exa Sinus tachycardia Other specified cardiac dysrhythmias Other specified open wound of ocular adn exa Other specified cardiac dysrhythmias(427 .89) Other specified cardiac dysrhythmias documented in this encounter Administered Medications Inactive Administered Medications - up to 3 most recent administrations Medication Order MAR Action Action Date Dose Rate Site bacitracin 500 unit/g ophthalmic Given 12/12/2010 4:00 AM EDT ointment Starting on 12/12/10 at 0350, 1 dose, Until 12/12/10 at 0400, DEYVI UREÑA: Cabinet Override documented in this encounter Active and Recently Administered Medications Times are shown in EDT. No Frequency Medication Order 12/10/2010 12/11/2010 12/12/2010 bacitracin 500 unit/g ophthalmic ointment (COMPLETED) 0400 (Given - Provider: Deyvi Ureña, RN) Starting on 12/12/10 at 0350, 1 dose , Until 12/12/10 at 0400, DEYVI UREÑA: Cabinet Override documented in this encounter Care Teams High Energy Forming Equipment Operator Relationship Specialty Start Date End Date Unknown PCP - General 12/11/10 None documented as of this encounter
--- NOTE | 2021-09-16 07:45 | DI.MRI_ITS ---
Exam(s) MR UPPER JOINT RT WO EXAM: MR UPPER JOINT RT WO CLINICAL HISTORY: pain with ROM, impingement syndrome rt shoulder region, M75.41 TECHNIQUE: Multiplanar multisequence MRI of the shoulder was performed. COMPARISON: CR XR SHOULDER RT COMPLETE 2+V from 06/18/2021 FINDINGS: MARROW:There is no evidence of fracture, Hill-Sachs deformity, nor ominous osseous lesions. There are multiple small degenerative subarticular cysts in the posterolateral aspect of humeral head ROTATOR CUFF MECHANISM: AC JOINT/ACROMIUM: Mild degenerative changes. No prominent downgoing osteophytes. The undersurface of the acromion is flat. There is no undersurface impingement hook evident. No obvious calcificatio n evident within the coracoacromial ligament.. There is no evidence of os acromiale. Supraspinatus: There is a thin focus of signal abnormality traversing the supraspinatus tendon just a beck the greater tuberosity associated with a sliver of fluid in the subdeltoid subacromial bursa. N o retraction of the musculotendinous junction. Infraspinatus: Increased signal at the conjoined tendon with the supraspinatus, this on articular nura face side. Probable partial tearing. No atrophy. Teres Minor: Intact. No evidence of tear nor muscle atrophy. Subscapularis/anterior cuff: Intact. No abnormal signal at the level of the multipennate insertional fibers. No significant tear nor atrophy. BICEPS TENDON: Normally position in the intertubercular groove. However, the intra-articular aspect is difficult to delineate above the group. LABRUM: There is no abnormal signal in the superior labrum posterior to the biceps attachment site. Small focus of increased signal in the posterior labrum noted. Anterior labrum appears intact and th ere is no periosteal stripping of the scapula at this level. Inferior labrum appears intact. Inferi or glenohumeral ligament is intact. GLENOHUMERAL JOINT: No joint effusion nor obvious loose intra-articular bodies. No chondral defects. No osteophytes. Degenerative subarticular cysts noted is lateral aspect humeral head-greater tubero sity. QUADRILATERAL SPACE: No evidence of mass in the region of the axillary nerve and dorsal circumflex hu meral vessels. Visualized triceps muscle at this level appears unremarkable. IMPRESSION: 1. There is signal abnormality in the rotator cuff-supraspinatus tendon as well as infraspinatus conj oined tendon consistent with partial thickness tearing. On 1 image there is focus of signal which tr averses the entire thickness of the tendon just above the greater tuberosity insertion. This is so s eated with a tiny amount of fluid in the subdeltoid bursa and may be a small focus of full-thickness tear at this level. There is no retraction musculotendinous junction. 2. Biceps tendon intra-articular aspect is somewhat difficult to delineate on this study. There is n o obvious labral tear. No evidence of paralabral cyst. 3. Multiple confluent degenerative subarticular cysts in the lateral aspect of the humeral head and g reater tuberosity. No degenerative subarticular cysts in the osseous glenoid. DATA REPOSITORY:
== END ==
PROVIDERS: PCP Nurse Practitioner Family; Visit Provider Nurse Practitioner Family
DX: M75.41 Impingement syndrome of right shoulder (principal); M85.611 Other cyst of bone, right shoulder
CPT/HCPCS: 73221

== ENCOUNTER 2021-12-02 09:37 | Day surgery (SDC) | payer OTHER, SELFPAY ==
[2021-12-02] VITALS (9 sets, daily range): BP systolic 100–134; BP diastolic 69–93; PULSE 74–89; RESP 15–20; TEMP 36.3–36.6; O2SAT 95–100; BMI 26.2
--- NOTE | 2021-12-02 07:48 | W.ANESPRE ---
General Info Date of Service Date Performed: 12/02/21 Height: 6 ft Weight: 87.543 kg Body Mass Index (BMI): 26.2 Surgical Procedure: Operation Date: 12/02/21 10:55 Proposed Procedure Side Surgeon p Shoulder Rotator Cuff Arthroscopic w/Extensive Debridement,Subacromial Decompression, Possibe Biceps Tenodesis Right Flavio Grady MD Meds Allergies and Home Medications Allergies Allergy/AdvReac Type Severity Reaction Status Date / Time No Known Allergies Allergy Verified 11/02/21 08:11 Home Medication Medication Instructions Recorded esomeprazole magnesium 20 mg 20 mg PO DAILY 01/29/19 capsule,delayed release (Nexium) acetaminophen 325 mg tablet 975 mg PO PRN PRN 03/27/20 modafinil 200 mg tablet 200 tab PO BID 12/02/21 Current Visit Medications: Current Medications Generic Name Dose Route Start Last Admin Trade Name Freq PRN Reason Stop Dose Admin Ringer's Solution 1,000 mls @ 30 mls/hr 12/02/21 06:00 IV 12/31/21 23:59 INFUSION [facility] Cefazolin Sodium/Dextrose 2 gm in 50 mls @ 100 mls/hr 12/02/21 06:00 Ancef Duplex IVPB 12/02/21 16:00 PREOP AMBER IV Miscellaneous Supplies 1 each 12/02/21 06:00 Iv Access IV 12/31/21 23:59 DIRECTED AMBER Oxycodone HCl 0 mg 12/02/21 07:23 Oxycodone 5 Mg Tab PO Q3H PRN PRN Pain Sodium Chloride 0 ml 12/02/21 06:00 Normal Saline Flush 10 Ml Syr IV 12/31/21 23:59 PRN PRN Sodium Chloride 0 ml 12/02/21 06:00 Normal Saline 10 Ml Vial IJ 12/31/21 23:59 DIRECTED PRN Sterile Water 0 ml 12/02/21 06:00 Water,Injection,Sterile 10 Ml Vial IJ 12/31/21 23:59 DIRECTED PRN PFSH Active Problems Active Problems: Problem Status Onset Code Bursitis of right shoulder M75.51 Rupture of right proximal biceps tendon S46.211A Rotator cuff tear, right M75.101 Colon polyp K63.5 Diverticulosis K57.90 Colon cancer screening Z12.11 GERD (gastroesophageal reflux disease) K21.9 Diverticulitis K57.92 Snoring R06.83 Medical History Medical History (Updated 11/02/21 @ 08:46 by Flavio Grady MD) GERD (gastroesophageal reflux disease) Sleep apnea Surgical History Surgical History S/P laparoscopic-assisted sigmoidectomy Tobacco Smoking/Tobacco Use Status: Former Tobacco Use Alcohol Alcohol Intake: current Alcohol intake frequency: a few times a month Alcohol type: hard liquor Substance Use Substance use: Never Substance use type: does not use Vital Signs and Lab Results Vital Signs Most Recent Vital Signs in EMR: Temp Pulse Resp BP Pulse Ox 36.3 C L 89 18 134/91 H 97 12/02/21 09:47 12/02/21 09:47 12/02/21 09:47 12/02/21 09:47 12/02/21 09:47 Lab Results Blood Type / Crossmatch: No Data to Display Complete Blood Count: No Data to Display Complete Metabolic Panel: No Data to Display Liver Function Panel: No Data to Display Coagulation Panel: No Data to Display Cardiac Panel: No Data to Display Arterial Blood Gas: No Data to Display Venous Blood Gas: No Data to Display Pancreas Panel: No Data to Display Thyroid Panel: No Data to Display Infectious Disease: No Data to Display Blood Cultures: No Data to Display Toxicology Panel: No Data to Display Anesthesia Assessment and Plan Anesthesia History Personal History: No History of Anesthesia Complications Family History: No Family History of Anesthesia Complications Exercise Tolerance Exercise Tolerance: Metabolic Equivalents>4 Cardiac & Pulmonary Exam Cardiac Exam: Normal S1/S2 Heart Sounds Pulmonary Exam: Clear Bilateral Breath Sounds Implantable Cardiac Device Does patient have a Pacemaker or an ICD?: No Airway Exam Known Difficult Airway: No Mallampati Class: 2 Mouth Opening: Normal (> 3cm) Thyromental Distance: Greater than 3 cm Neck Range of Motion: Full ROM Neck Circumference: Normal Teeth Condition: Normal Dentition, Removable Dentures/Plates Upper and Removable Dentures/Plates Lower ASA Classification ASA Score: ASA 2 Emergency Case?: No NPO Status NPO Status: NPO Clears >2 hours, Solids >8 hours Anesthesia Plan Resuscitation Status: Full Code Anesthesia Technique: General Anesthesia Airway Planned: Endotracheal Tube Pain Management: Surgeon and patient request nerve block Monitors Used: Standard Monitors Preoperative Comments:: 56 yo male for right shoulder scope. Sig PMHx: GERD (well controlled), ABA, former smoker, occ EtOH, Previous Anes: [place] with proprfol - no issues. Discussed risks and benifits of GA/ETT with interscalene block (inculuding 1:5000 risk of permenent nerve injury, 1:500 risk of temporary nerve injury, and still the posibility of pain afterwards), would like to preceed as such.
[2021-12-02] MEDS: Lactated Ringers 1,000 ML 30 ML IV (10:30)
[2021-12-02] MEDS: ceFAZolin 2 GM/50 ML BAG IVPB (11:34)
--- NOTE | 2021-12-02 11:56 | W.ANESNERVE ---
Nerve Block Single Injection Procedure Date and Time Date Performed: 12/02/21 Procedure Start: 11:21 Location Where Procedure Performed Procedure Location: Day Surgery Unit Reason Performed: Postoperative Analgesia Requesting Provider: Cole Arguello Timeout Performed Timeout Performed: Yes Monitoring Used ECG, Blood Pressure and SpO2 Sterility Sterility: Hand Hygiene, Surgical Cap, Surgical Mask, Sterile Gloves and Chlorhexidine Sedation Given During Procedure Sedation Given (Indicate Dose Given): Versed IV Dose:: 2 mg Patient Mental Status Patient Mental Status: Awake Nerve Block 1st Nerve Block: Laterality: Right Block Type: Interscalene Needle / Catheter Used: 100mm SonoPlex II Local Anesthetic Bolus (Indicate Dose Given): Lidocaine used for local infiltration of skin, Injected in 3-5ml increments after negative blood aspiration and Bupivacaine 0.375% Dose:: 20 mL Additives (Indicate Dose Given): Precedex Dose:: 80 mcg Ultrasound: Sterile probe cover and gel used Ultrasound Image Saved?: Yes Nerve Stimulator: Supplement to Ultrasound use and No twitch or parasthesia noted < 0.5 mA (twitch noted at 0.5, needle reposistioned, no twitch, medication given. ) Paresthesia: None Procedure Tolerated: No Complications Procedure Outcome: Successful Performed By: Cole Arguello
[2021-12-02] MEDS: EPINEPHrine 30 MG/30 ML VIAL (12:38)
--- NOTE | 2021-12-02 12:55 | W.PM.DSUDISC ---
Discharge Plan Disposition Patient Disposition: HOME Condition: Stable Discharge Details Reason For Visit: Right shoulder surgery Attending Provider: Flavio Grady Primary Care Provider: Amalia Michele Home Meds and New Rx's Prescriptions: New naproxen 250 mg tablet 250 - 500 mg PO BID PRNQty: 40 0RF Rx Instructions: take with a meal aspirin 81 mg tablet,delayed release (DR/EC) 81 mg PO DAILY 14 Days Qty: 14 0RF oxycodone 5 mg tablet 5 - 10 mg PO Q4H MDD 30 mg PRN (Reason: moderate to severe pain) Qty: 18 0RF Continued esomeprazole magnesium [Nexium] 20 mg capsule,delayed release(DR/EC) 20 mg PO DAILY modafinil 200 mg tablet 200 tab PO BID Label Comments: TAKE ONE TABLET BY MOUTH TWICE A DAY acetaminophen 325 mg Tablet 975 mg PO PRN PRN Discontinued ibuprofen 800 mg tablet 800 mg PO TID Qty: 42 0RF Discharge Instructions Additional Instructions: Surgery: Right shoulder arthroscopy with extensive debridement and subacromial decompression Activity: You should gradually increase range of motion motion and use of your shoulder. You may use your shoulder for all regular activities. Recommend avoiding heavy lifting, reaching overhead, or lifting away from body for approximately 6 weeks. You may use the sling whenever you are out of the house for a coulpe weeks. At home it is best to remove the sling and rest the arm on a pillow at your side or support the operative side with your other hand. A physical therapy prescription will be sent electronically to start in about 2 weeks. Prescriptions: Aspirin 81 mg take 1 daily to prevent a blood clot for 2 weeks Naproxen 250 mg take 1-2 every 12 hours with a meal as needed for moderate pain Oxycodone 5 mg take 1-2 every 4-6 hours as needed for severe pain You may use [id number] Tylenol (acetaminophen) as needed for mild pain. These pain medications may be taken all at once or in different combinations as needed. Also, recommend Colace (docusate) as a stool softener as surgery and pain medicine cause constipation. You may try [id number] diphenhydramine (Benadryl) 25-50 mg nightly as a sleep aid Dressings: Remove shoulder bandage after 3 days. Leave the sticky Steri-Strips in place until they fall off or remove them after you shower. Cover the incisions with Band-Aids or leave them open to air. You may shower after 5 days. Follow-up: 10-[address] Grady You may take off the leg compression stockings this evening at home. You may also leave them on a few days longer if you have a history of leg swelling or edema. Let us know right away if you develop any redness, drainage, fevers, chest pain, or trouble breathing. Do not drink alcohol or drive for at least 24 hours after anesthesia. Please call the office during business hours with any questions or concerns. Discharge Orders Discharge Orders: Discharge Order (Routine); Ordered 12/02/21 Ordered By: Flavio Grady
--- NOTE | 2021-12-02 13:01 | W.PM.OP ---
Operative Note Operative Note DATE OF PROCEDURE: 12/02/21 PRE-OP DIAGNOSIS: Right: 1. Rotator cuff tear 2. Proximal biceps rupture 3. Bursitis POST-OP DIAGNOSIS: same PROCEDURE: Right: 1. Extensive debridement, CPT# 09551. This involved using arthroscopic hand instruments, power instruments, and radiofrequency instruments to release the long head of the biceps tendon remnant and debride areas of partial articular rotator cuff tearing, labral tearing, synovitis, and chondromalacia about the biceps groove within the glenohumeral joint anteriorly, superiorly and posteriorly. 2. Subacromial decompression with partial acromioplasty, CPT# 62754. This involved using arthroscopic power instruments and a radiofrequency wand to complete a bursectomy and remove bone spurs on the undersurface of the acromion. SURGEON: Flavio Grady TRAINING AND DEVELOPMENT DIRECTOR: Esther Negron ANESTHESIA TYPE: General LMA/ETT and Primary Nerve Block Refer to Anesthesia Record ESTIMATED BLOOD LOSS: 10 PATHOLOGY: none sent COMPLICATIONS: None Patient was transported to: PACU Patient's condition: stable Implants: None Indications: The patient was diagnosed with the above conditions and appropriately indicated for surgical intervention. Please see complete medical record for details. Findings: Exam under anesthesia: Full range of motion, no instability Glenohumeral joint: Significant anterior and superior synovitis. Mild diffuse articular sided rotator cuff tearing. Intact subscapularis with upper margin variant intact and confluent with transverse humeral ligament. Intact [facility], [facility]. Proximal biceps rupture with absent intra-articular segment. Mild fraying stump remnant superior labrum. Anterior superior posterior labral degenerative type SLAP fraying. Mild global thinning and softening cartilage no high-grade defects. No significant articular sided tuberosity rotator cuff tearing. Subacromial space: Significant bursitis. Mild undersurface acromial impingement on rotator cuff. No bursal rotator cuff tear or significant thinning or fraying. Procedure Description: In the operating room, general anesthesia was induced. Bilateral shoulders were examined. The patient was positioned in the beachchair position. All bony prominences were well-padded. Preoperative antibiotics were administered. The shoulder was prepped and draped in the usual sterile fashion. The correct patient, procedure, and side of the procedure were all verified prior to incision. Starting through the posterior portal a standard complete diagnostic arthroscopy was performed of the glenohumeral joint including inspection of the long head of the biceps, anterior and superior labrum, subscapularis tendon, supraspinatus and infraspinatus tendons, and axillary recess. The glenoid and humeral head cartilage as well as the posterior labrum were inspected from an anterior viewing portal. Significant findings and interventions noted above. The biceps tendon was absent and there was no significant articular sided rotator cuff or subscapularis tear. Starting through the posterior portal, the arthroscope was directed into the subacromial space. A lateral 50 yard line lateral portal was created. A combination of power instruments and a radiofrequency ablator were used to debride bursitis anteriorly, posteriorly, and laterally as well as expose and smooth bone spurring on the undersurface of the acromion. The coracoacromial ligament was partially released. The bursectomy was completed viewing laterally and working from posteriorly and the rotator cuff was thoroughly inspected with findings noted above. The bursal rotator cuff had diffuse injection and inflammation, but no significant structural thinning, fraying, or tearing. The shoulder was drained of arthroscopic fluid. All portal sites were copiously irrigated. These incisions were closed using 3-0 Monocryl in a buried fashion and then covered with Mastisol, Steri-Strips, Xeroform, dry gauze, and ABDs. The dressings were covered and secured with Medipore tape. The operative extremity was placed into a sling for immobilization. The patient awoke from anesthesia without complication and was transferred to the recovery room in a stable condition.
--- NOTE | 2021-12-02 13:46 | W.ANESPOSTOP ---
Postoperative Evaluation Date, Time and Location Date Performed: 12/02/21 Time Performed: 13:47 Patient Location: Day Surgery Unit Vital Signs Most Recent Imported Vital Signs: Most Recent Vital Signs Temp Pulse Resp BP Pulse Ox 36.6 C 76 15 100/74 96 12/02/21 13:33 12/02/21 13:33 12/02/21 13:33 12/02/21 13:33 12/02/21 13:33 Pain Score Most Recent Pain Score: Most Recent Pain Score Pain Level 0 12/02/21 13:33 Assessment Mental Status: Awake (Alert & Oriented to Patient Baseline) Airway and Respiratory Function: Patent airway with normal (patient baseline) respiratory exam Cardiovascular Function: Hemodynamically Stable Hydration Status: Adequately Hydrated Nausea & Vomiting: No Nausea or Vomiting Pain: Pt. Denies Any Pain Peripheral Nerve Block: Regional nerve block not resolved at time of post operative discharge
== END 2021-12-02 15:15 | disposition home or self-care (01) ==
PROVIDERS: PCP Nurse Practitioner Family; Visit Provider Student in an Organized Health Care Education/Training Program
PROC: (CPT 29827; principal; 2021-12-02 10:45)
DX: S46.111A Strain of muscle, fascia and tendon of long head of biceps, right arm, initial encounter (principal); M75.41 Impingement syndrome of right shoulder; M65.811 Other synovitis and tenosynovitis, right shoulder; M75.111 Incomplete rotator cuff tear or rupture of right shoulder, not specified as traumatic; M75.51 Bursitis of right shoulder; X58.XXXA Exposure to other specified factors, initial encounter
CPT/HCPCS: 29823; 29826; 76942; J0690; J1100; J1885; J2250; J2370; J2405; J2704

== ENCOUNTER 2023-04-13 13:40 | Outpatient (REF) | payer OTHER, SELFPAY ==
[2023-04-13 21:15] LABS: HGB 14.6 g/dL (13.5-17.5); MCH 28.3 pg (27.0-33.0); MCHC 33.2 % (32.0-36.0); MCV 85 fL (80-95); MPV 10.4 fL (8.0-11.0); Platelet Count 245 10^3/uL (130-400); RBC 5.15 10^6/uL (4.36-5.78); RDW 13.1 % (11.8-14.1); RDW-SD 41.1 fL
[2023-04-13 21:39] LABS: ALT 38 U/L (16-63); AST 15 U/L (15-37); Albumin 4.2 g/dL (3.4-5.0); Alkaline Phosphatase 91 U/L (46-116); Anion Gap 11.1 mmol/L (3-11); BUN 19 mg/dL (7-18); Bilirubin, Total 0.2 mg/dL (0.2-1.0); CO2 26.9 mmol/L (21.0-32.0); Calcium 9.1 mg/dL (8.5-10.1); Calculated LDL 141 mg/dL (<100); Chloride 107 mmol/L (98-107); Cholesterol 222 mg/dL (<200); Estimated GFR 87.78 (mL/min/1.73m2); Glucose 122 mg/dL (74-106); HDL Cholesterol 49 mg/dL (40-60); Potassium 4.4 mmol/L (3.5-5.1); Sodium 145 mmol/L (136-145); Total Protein 7.3 g/dL (6.4-8.2); Triglyceride 160 mg/dL (<150)
[2023-04-14 17:29] LABS: PSA, Screening 0.8 ng/mL (<=3.5)
== END 2023-04-13 13:41 | disposition home or self-care (01) ==
LOC: NCHCN 13:40
PROVIDERS: PCP Nurse Practitioner Family; Referring Provider Nurse Practitioner Family; Visit Provider Nurse Practitioner Family
DX: Z00.00 Encounter for general adult medical examination without abnormal findings (principal); R94.6 Abnormal results of thyroid function studies; Z13.220 Encounter for screening for lipoid disorders; Z12.5 Encounter for screening for malignant neoplasm of prostate; Z13.228 Encounter for screening for other metabolic disorders
CPT/HCPCS: 80053; 80061; 84153; 85027; 84443

== ENCOUNTER 2024-04-24 17:23 | Outpatient (REF) | payer OTHER, SELFPAY ==
[2024-04-24 21:11] LABS: HCT 43.1 % (40.0-50.0); HGB 14.3 g/dL (13.5-17.5); MCH 28.9 pg (27.0-33.0); MCHC 33.2 % (32.0-36.0); MCV 87 fL (80-95); MPV 10.2 fL (8.0-11.0); Platelet Count 220 10^3/uL (130-400); RBC 4.95 10^6/uL (4.36-5.78); RDW 13.1 % (11.8-14.1); RDW-SD 41.6 fL; WBC 7.32 10^3/uL (4.4-10.8)
[2024-04-24 21:21] LABS: ALT 40 U/L (16-63); Alkaline Phosphatase 89 U/L (46-116); Anion Gap 7.8 mmol/L (3-11); BUN 15 mg/dL (7-18); Bilirubin, Total 0.32 mg/dL (0.2-1.0); CO2 27.2 mmol/L (21.0-32.0); CREATININE 1.1 mg/dL (0.70-1.30); Calcium 8.7 mg/dL (8.5-10.1); Chloride 105 mmol/L (98-107); Estimated GFR 77.81 (mL/min/1.73m2); Glucose 133 mg/dL (74-106); Potassium 4.6 mmol/L (3.5-5.1); Sodium 140 mmol/L (136-145); Total Protein 6.7 g/dL (6.4-8.2)
[2024-04-24 21:46] LABS: Hemoglobin A1C 6.2 % (<5.7)
[2024-04-24 21:59] LABS: AST 19 U/L (15-37)
[2024-04-25 22:05] LABS: PSA, Screening 0.6 ng/mL (<=3.5)
== END 2024-04-24 17:24 | disposition home or self-care (01) ==
LOC: NCHCN 17:23
PROVIDERS: PCP Nurse Practitioner Family; Visit Provider Nurse Practitioner Family
DX: Z00.00 Encounter for general adult medical examination without abnormal findings (principal); Z12.5 Encounter for screening for malignant neoplasm of prostate
CPT/HCPCS: 80053; 84153; 85027; 83036